=== PATIENT | female | born 1985 | race Caucasian/White ===

== ENCOUNTER 2017-01-09 19:50 | Emergency (ER) | payer OTHER | END 2017-01-09 21:09 | disposition home or self-care (01) | LOC: ER1 19:50 | DX: L73.9 Follicular disorder, unspecified (principal); F17.210 Nicotine dependence, cigarettes, uncomplicated; G40.909 Epilepsy, unspecified, not intractable, without status epilepticus; Z79.899 Other long term (current) drug therapy | CPT/HCPCS: 99282 ==

== ENCOUNTER 2017-02-05 14:47 | Emergency (ER) | payer OTHER | END 2017-02-05 17:45 | disposition left against medical advice (07) | LOC: ER1 14:47 | DX: Z53.21 Procedure and treatment not carried out due to patient leaving prior to being seen by health care provider (principal) | CPT/HCPCS: 93005 ==

== ENCOUNTER 2021-03-08 22:06 | Emergency (ER) | payer OTHER ==
[2021-03-09] MEDS ORDERED: DIFLUCAN150 MG PO (03:08)
[2021-03-12 17:10] LABS: CHLAMYDIA TRACHOMATIS, NAA Negative (Negative); NEISSERIA GONORRHOEAE, NAA Negative (Negative)
== END 2021-03-09 03:11 | disposition home or self-care (01) ==
LOC: ER1 22:06
PROVIDERS: Emergency Medicine
DX: N76.0 Acute vaginitis (principal); B37.3 Candidiasis of vulva and vagina
CPT/HCPCS: 81001; 84703; 87210; 99283